=== PATIENT | male | born 2005 | race Caucasian/White ===

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

== ENCOUNTER 2023-06-14 09:21 | Emergency (ER) | payer OTHER, SELFPAY ==
[2023-06-14 09:22] VITALS: BP 130/66; PULSE 77; RESP 14; TEMP 36.4; O2SAT 100; BMI 19.3
--- NOTE | 2023-06-14 09:38 | ED.VIS.LOWEX ---
HPI History of Present Illness Chief Complaint: Lower Extremity Injury Narrative Narrative: 18-year-old male who denies significant past medical history presents with a work-related injury. He states that he was riding on the outside of a bobcat, and his foot was hanging off of it. It got caught and twisted. He now has pain and swelling across the top of his right foot. He denies other injury. Hurts more when he weightbears and walks. He presents with his boss for evaluation of his right foot injury. He denies any ankle pain or any injury above his right foot. PFSH PFSH Medical History no medical history Home Medications NK 05/20/18 [History Last Taken Unknown] Allergy/AdvReac Type Severity Reaction Status Date / Time No Known Allergies Allergy Verified 06/14/23 09:22 Surgical History no surgical history Social History Smoking Status: Never smoker ROS ROS ED ROS Narrative Constitutional: No fever, no chills. HEENT: No sore throat. No neck pain. No loss of vision. No rhinorrhea. Cardiovascular: No chest pain. No palpitations. No pedal edema. Respiratory: No cough, no shortness of breath. Abdominal: No abdominal pain. No nausea. No vomiting. Genitourinary: No dysuria. No hematuria. Musculoskeletal: No myalgias. Pain across top of right foot, swelling noted on dorsum of right foot more laterally. Neurologic: No headaches. No dizziness. No lightheadedness. Skin: No rash. No change in color. Psychiatric: No depression. No anxiety. EXAM Physical Exam Narrative Exam Narrative: Afebrile. Vital signs noted. HEENT: Normocephalic. Atraumatic. PERRL, EOMI. Neck soft and supple. No point tenderness or step off. Cardiovascular: Regular rate and rhythm. No murmurs, rubs, or gallops appreciated. Respiratory: No tachypnea. Lungs clear to auscultation bilaterally. Gastrointestinal: Abdomen soft, nontender, with normoactive bowel sounds. No rebound or guarding. Neurological: Awake. Alert. Nonfocal, nonlateralizing. Skin: No rash. Normal color. No pallor. Musculoskeletal: No pedal edema. Positive swelling over tarsal bones, more laterally with tenderness across dorsum of foot. Palpable dorsalis pedis pulse. No malleoli or pain. No palpable Achilles tendon deficit. Able to dorsiflex and flex foot. Good capillary refill of toes. No proximal fibular head tenderness. Const Vital Signs: 06/14/23 09:22 Temperature 97.6 F L Temperature Source Temporal Pulse Rate 77 Respiratory Rate 14 Blood Pressure 130/66 H Blood Pressure Mean 87 Pulse Ox 100 Oxygen Delivery Method Room Air MDM MDM MDM Narrative Medical decision making narrative: In the differential is foot sprain versus foot fracture. Ice pack was applied. As this is a work-related injury, patient requires testing by [facility]. X-rays were obtained of the right foot in 3 views and interpreted by myself independently. On my interpretation of his foot x-ray in 3 views, there is no evidence of an acute fracture. I reviewed the radiology report which confirms my independent interpretation. Patient will be placed in an Dominic wrap and be weightbearing as tolerated. He was given a few restrictions for work including limited use of his right leg, and limited climbing stairs or ladders. He is to continue ice and elevation of his right lower extremity when possible. I discussed patient with Dr. Krueger with podiatry who agrees that he can follow-up with Workmen's Comp. patient's. Additionally, he will be referred to report immediately to the [facility] for his drug testing. I feel he can be discharged safely home with follow-up. Return instructions to the emergency department were reviewed. Disposition is discharged home in stable condition. Radiography Diagnostic Testing: Clinical Impression(s) from Imaging Studies Foot X-Ray 06/14/23 09:55 IMPRESSION: No acute abnormality is seen. Electronically Signed: Bg Ziegler MD at 10:17 EDT , Discharge Plan Triage Chief Complaint: Lower Extremity Injury ED Provider: Doc Estrada Dx/Rx/DC Orders Clinical Impression: Localized swelling of right foot, Right foot sprain Instructions: ED Foot Sprain Prescriptions: No Action NK Primary Care Provider: Myles Rocha Referrals: Gilson Krueger DPM [Med Staff - Active Staff] - As soon as possible Myles Rocha MD [Primary Care Provider] - Activity Restrictions/Additional Instructions: Report to the [facility] immediately for your required testing/drug screening. You may also follow-up with [facility] or Dr. Krueger with podiatry regarding your Workmen's Comp. injury. Disposition Disposition: Home, Self Care
--- NOTE | 2023-06-14 09:55 | RAD_ITS ---
STUDY: X-RAY - RIGHT FOOT CLINICAL: Male, 18 years old. Injury to the right foot. TECHNIQUE: 3 view(s) of the foot. COMPARISON: None. FINDINGS: Normal talus, calcaneus, and tarsal bones. Normal visualized subtalar, talonavicular, calcaneocuboid, tarsal and tarsometatarsal articulations. Small spur seen along the anterior tarsonavicular bone. Normal metatarsi. Normal metatarsophalangeal joint of the great toe. Normal tibial and fibular sesamoid bones. Normal interphalangeal joint of the great toe. Normal phalanges of the great toe. Normal second through fifth metatarsophalangeal joints. Normal interphalangeal joints and phalanges of the lesser toes. The soft tissue structures are unremarkable. RAD/Foot min 3 Views IMPRESSION: No acute abnormality is seen. Electronically Signed: Bg Ziegler MD at 10:17 EDT ,
--- NOTE | 2023-06-14 10:56 | ED.RN ---
Dominic wrap applied
== END 2023-06-14 10:45 | disposition home or self-care (01) ==
LOC: ED 11:17
PROVIDERS: Emergency Provider Emergency Medicine; PCP Pediatrics; Visit Provider Emergency Medicine
DX: S93.601A Unspecified sprain of right foot, initial encounter (principal); M79.89 Other specified soft tissue disorders; W31.82XA Contact with other commercial machinery, initial encounter; Y99.0 Civilian activity done for income or pay
CPT/HCPCS: 73630; 99282

== ENCOUNTER → 2023-10-26 | Outpatient (CLI) | payer OTHER, SELFPAY ==
[2023-10-26 17:39] LABS: Hematocrit 44.4 % (40-54); Hemoglobin 14.9 g/dL (13.0-16.5); Mean Corp Hgb Conc 33.6 g/dL (32-36); Mean Corpuscular Hgb 28.7 pg (27.0-32.0); Mean Corpuscular Volume 85.4 fL (80-94); Mean Platelet Vol. 10.1 fl (6.2-12.0); Platelet Count 270 K/mm3 (150-450); RBC Distribution Width CV 12.7 % (11.6-14.6); RBC Distribution Width SD 38.9 fl (35.1-43.9); White Blood Count 9.9 K/mm3 (4.4-11.0)
[2023-10-26 17:54] LABS: Erythrocyte Sedimentation Rate 5 mm/hr (0-20)
[2023-10-26 18:21] LABS: ALB/GLOB Ratio 1.2 RATIO (0.9-2.4); AST(SGOT) 16 U/L (15-37); Alanine Aminotransfer ALT/SGPT 29 U/L (16-61); Albumin, Serum 4.2 g/dL (3.2-5.0); Alkaline Phosphatase 56 U/L (45-117); Anion Gap 4 (5-15); BUN 18 mg/dL (7-18); BUN/Creat Ratio 14.6 RATIO (10-20); CRP < 2.90 mg/L (0.0-3.0); Calcium,Total 9.4 mg/dL (8.5-10.1); Chloride 105 mmol/L (98-107); Creatinine, Serum 1.23 mg/dL (0.70-1.30); EST Glomerular Filtration Rate 79 mL/min (>60); Est Glom Filt Rate - Afr Amer 96 mL/min (>60); Globulin 3.6 g/dL (2.2-4.2); Glucose 66 mg/dL (74-106); Potassium 3.9 mmol/L (3.5-5.1); Protein, Total 7.8 g/dL (6.4-8.2); Sodium Level 137 mmol/L (136-145); T4 Total, Thyroxin 11.5 ug/dL (4.5-12.1)
--- OUTSIDE RECORDS SUMMARY | 2023-10-26 18:52 | XMS RPT_ITS | CCD ---
Author Name Unknown Address [address] [place] [address] Organization [facility] Care Team Providers Care Brick Burner Head Name Role Phone DIGNA BECERRA Primary Care Unavailable PROVIDER, UNKNOWN Referring Unavailable DIGNA BECERRA Primary Care Unavailable LISA DOWELL Attending Unavailable Digna Becerra MD Primary Care Provider [phone] DIGNA BECERRA Primary Care Unavailable LISA DOWELL Referring Unavailable DIGNA BECERRA Primary Care Unavailable LISA DOWELL Referring Unavailable DIGNA BECERRA Primary Care Unavailable NAA IBARRA Referring Unavailable NAA IBARRA Attending Unavailable DIGNA BECERRA Primary Care Unavailable NAA IBARRA Attending Unavailable Medications Completed/Discontinued Medications Medication Drug Class(es) Dates Sig (Normalized) Sig (Original) adapalene 0.003 mg/mg / benzoyl peroxide 0.025 mg/mg topical gel (2 sources) Retinoid Start: 10-26-2019 adapalene-benzoyl peroxide (EPIDUO FORTE) 0.3-2.5 % glwp Apply to the face qhs 45 g 3 10/26/2019 Active Problems Problem Classification Problem Date Documented Da te Episodic/Chronic Other bone disease and musculoskeletal deformities (1 source) Adolescent idiopathic scoliosis, site unspecified; Translations: [Adolescent idiopathic scoliosis, unspecified spinal region] Onset: 11-01-2020 Chronic Other bone disease and musculoskeletal deformities (2 sources) Adolescent idiopathic scoliosis; Translations: [Adolescent idiopathic scoliosis, site unspecified] Onset: 11-01-2020 11-01-2020 Chronic Other bone disease and musculoskeletal deformities (1 source) Adolescent idiopathic scoliosis, thoracic region; Translations: [Adolescent idiopathic scoliosis of thoracic region] Onset: 11-01-2020 Chronic Other nervous system disorders (2 sources) Syringomyelia and syringobulbia; Translations: [Syringomyelia and syringobulbia (HCC)] Onset: 09-24-2023 Chronic Other nervous system disorders (2 sources) Syringomyelia and syringobulbia; Translations: [Syringomyelia and syringobulbia] 10-22-2023 Chronic Residual codes; unclassified (1 source) Pain, unspecified; Translations: [Pain] Onset: 07-19-2023 Episodic Results Test Name Value Interpretation Reference Range Facil ity Encounters Encounter Date Encounter Type Care Provider Facility Start: 10-22-2023 End: 10-22-2023 ambulatory [facility] Facility:[facility] Start: 10-22-2023 End: 10-22-2023 Subsequent hospital visit by physician Mri Radio [facility] (I-Stat/1.5t) Work Phone: Radiology Procedures Date Procedure Procedure Detail Performing Clinician Start: 10-22-2023 Mri spinal canal tho racmorgan w/o & w/contr matrl Lisa Dowell PA-C Work Phone: Plan of Treatment Date Care Activity Detail Author Start: 11-17-2024 Urine microalbumin profile DTa P,Tdap,Td Vaccine (7 - Td or Tdap) [facility] Start: 09-20-2023 Depression Assessment Depression Ass essment [facility] Start: 05-21-2023 Covid-19 Vaccine ( season) Covid-19 Vaccine ( season) [facility] Start: 05-21-2023 Influenza vaccination Influenza Vacc ine (#1) [facility] Start: 2021 Hepatitis C screening Hepatitis C [place] new [facility] Start: 2021 HIV screening HIV Screening [facility] Start: 2019 Meningococcal B Vacc ine: Consider Based On Risk (1 of 2 - Patient Seeks Protection) Meningococcal B Vaccine: Consider Based On Risk (1 of 2 - Patient Seeks Protection) [facility] Start: 2017 Peds To Adult Transi tion Annual Assessment Peds To Adult Transition Annual Assessment [facility] Immunizations Immunization Date Immunization Notes Care Provider Fa cility 10-30-2021 influenza, injectabl e, quadrivalent, contains preservative Mri (I-Stat/1.5t) Work Phone: [facility] 10-30-2021 influenza virus vacc ine, unspecified formulation Mri (I-Stat/1.5t) Work Phone: [facility] 04-11-2021 COVID-19 original vaccine, full dose, monovalent (MODERNA) Mri (I-Stat/1.5t) Work Phone: [facility] 10-26-2019 meningococcal polysaccharide (groups A, C, Y and W-135) diphtheria toxoid conjugate vaccine (MCV4P) Mri (I-Stat/1.5t) Work Phone: [facility] 10-25-2018 influenza, injectabl e, quadrivalent, contains preservative Mri (I-Stat/1.5t) Work Phone: [facility] 07-20-2017 Human Papillomavirus 9-valent vaccine Mri (I-Stat/1.5t) Work Phone: [facility] 07-20-2017 influenza, injectabl e, quadrivalent, contains preservative Mri (I-Stat/1.5t) Work Phone: [facility] 04-28-2016 Human Papillomavirus 9-valent vaccine Mri (I-Stat/1.5t) Work Phone: [facility] 11-17-2014 meningococcal polysaccharide (groups A, C, Y and W-135) diphtheria toxoid conjugate vaccine (MCV4P) Mri (I-Stat/1.5t) Work Phone: [facility] 11-17-2014 tetanus toxoid, redu jailyn diphtheria toxoid, and acellular pertussis vaccine, adsorbed Mri (I-Stat/1.5t) Work Phone: [facility] 10-07-2013 influenza virus vacc ine, unspecified formulation Mri (I-Stat/1.5t) Work Phone: [facility] 09-22-2012 influenza virus vacc ine, live, attenuated, for intranasal use Mri (I-Stat/1.5t) Work Phone: [facility] 07-11-2011 influenza virus vacc ine, live, attenuated, for intranasal use Mri (I-Stat/1.5t) Work Phone: [facility] Work Phone: 06-07-2010 influenza virus vacc ine, live, attenuated, for intranasal use Mri (I-Stat/1.5t) Work Phone: [facility] Work Phone: 07-05-2009 influenza virus vacc ine, live, attenuated, for intranasal use Mri (I-Stat/1.5t) Work Phone: [facility] Work Phone: 07-05-2008 influenza virus vacc ine, live, attenuated, for intranasal use Mri (I-Stat/1.5t) Work Phone: [facility] Work Phone: 03-09-2008 diphtheria, tetanus toxoids and acellular pertussis vaccine Mri (I-Stat/1.5t) Work Phone: [facility] 03-09-2008 measles, mumps and rubella virus vaccine Mri (I-Stat/1.5t) Work Phone: [facility] 03-09-2008 poliovirus vaccine, inactivated Mri (I-Stat/1.5t) Work Phone: [facility] 03-09-2008 varicella virus vaccine Mri (I-Stat/1.5t) Work Phone: [facility] 07-24-2006 influenza virus vacc ine, unspecified formulation Mri (I-Stat/1.5t) Work Phone: [facility] 07-21-2005 influenza virus vacc ine, unspecified formulation Mri (I-Stat/1.5t) Work Phone: [facility] Work Phone: 09-10-2004 measles, mumps and rubella virus vaccine Mri (I-Stat/1.5t) Work Phone: [facility] Work Phone: 07-04-2004 influenza virus vacc ine, unspecified formulation Mri (I-Stat/1.5t) Work Phone: [facility] Work Phone: 06-12-2004 diphtheria, tetanus toxoids and acellular pertussis vaccine Mri (I-Stat/1.5t) Work Phone: [facility] Work Phone: 06-12-2004 haemophilus influenz ae type b vaccine, HbOC conjugate Mri (I-Stat/1.5t) Work Phone: [facility] Work Phone: 06-12-2004 pneumococcal conjuga te vaccine, 7 valent Mri (I-Stat/1.5t) Work Phone: [facility] Work Phone: 03-12-2004 varicella virus vaccine Mri (I-Stat/1.5t) Work Phone: [facility] Work Phone: 2003 hepatitis B vaccine, pediatric or pediatric/adolescent dosage Mri (I-Stat/1.5t) Work Phone: [facility] Work Phone: 2003 poliovirus vaccine, inactivated Mri (I-Stat/1.5t) Work Phone: [facility] Work Phone: 2003 diphtheria, tetanus toxoids and acellular pertussis vaccine Mri (I-Stat/1.5t) Work Phone: [facility] Work Phone: 2003 haemophilus influenz ae type b vaccine, HbOC conjugate Mri (I-Stat/1.5t) Work Phone: [facility] Work Phone: 2003 hepatitis B vaccine, pediatric or pediatric/adolescent dosage Mri (I-Stat/1.5t) Work Phone: [facility] Work Phone: 2003 pneumococcal conjuga te vaccine, 7 valent Mri (I-Stat/1.5t) Work Phone: [facility] Work Phone: 2003 influenza virus vacc ine, unspecified formulation Mri (I-Stat/1.5t) Work Phone: [facility] Work Phone: 2003 diphtheria, tetanus toxoids and acellular pertussis vaccine Mri (I-Stat/1.5t) Work Phone: [facility] Work Phone: 2003 haemophilus influenz ae type b vaccine, HbOC conjugate Mri (I-Stat/1.5t) Work Phone: [facility] Work Phone: 2003 pneumococcal conjuga te vaccine, 7 valent Mri (I-Stat/1.5t) Work Phone: [facility] Work Phone: 2003 poliovirus vaccine, inactivated Mri (I-Stat/1.5t) Work Phone: [facility] Work Phone: 2003 diphtheria, tetanus toxoids and acellular pertussis vaccine Mri (I-Stat/1.5t) Work Phone: [facility] Work Phone: 2003 haemophilus influenz ae type b vaccine, HbOC conjugate Mri (I-Stat/1.5t) Work Phone: [facility] Work Phone: 2003 pneumococcal conjuga te vaccine, 7 valent Mri (I-Stat/1.5t) Work Phone: [facility] Work Phone: 2003 poliovirus vaccine, inactivated Mri (I-Stat/1.5t) Work Phone: [facility] Work Phone: 2003 hepatitis B vaccine, pediatric or pediatric/adolescent dosage Mri (I-Stat/1.5t) Work Phone: [facility] Work Phone: Payers Date Payer Category Payer Private Health Insurance [facility] [id number] 2018 Private Health Insurance [employer] PPO TPA [id number] 2018-Present [address] [place] [phone] PPO [id number] Social History Date Type Detail Facility [facility]: [facility] History of tobacco use Passive smoker [facility] Start: 07-19-2023 Tobacco use and exposure Smoke less tobacco non-user [facility] Start: 09-24-2023 Alcohol intake Not Asked [facility] Start: 07-19-2023 End: 09-24-2023 History of Social function [facility] Start: 07-19-2023 End: 09-24-2023 Tobacco use panel [facility] Adult Depression Screening Assessment 6 [facility] Start: 07-19-2023 Tobacco Comment dad outside [facility] Start: 2003 Sex Assigned At Male [facility] Start: 05-10-2021 Gender identity Identifies as male gender (finding) [facility] Clinical Notes 07-19-2023 to 10-22-2023 Janine Melendez RT(R) - 10/22/2023 1:00 PM EST Note Date & Type Note Facility 10-22-2023 Note HNO ID: [id number] Author: JANINE MELENDEZ RT(R) Service: ? Author Type: Technologist Type: Progress Notes Filed: 10/22/2023 13:14 Note Text: Radiology Service Progress Note DATE OF SERVICE: October 22, 2023 TIME: 1:13 PM PATIENT IDENTITY VERIFICATION COMPLETED USING TWO (2) STANDARD IDENTIFIERS: Name and Date of confirmed by patient verbally. FALL SCREENING: Has the patient had 2 falls in the last year or 1 fall with injury or currently using an Ambulatory Assistive Device (Walker, Cane, Wheelchair, Crutches, etc.)? No PATIENT GENDER DATA: Male PATIENT RELEVANT IMPLANT DATA REVIEWED: Yes PATIENT PRESENTS WITH AN IMPLANTABLE OR ATTACHED COKEMAN: No ALLERGIES: Reviewed and unchanged CONTRAST ALLERGY: NO. EXAM: MRI - CONTRAST TYPE: GROUP II PERIPHERAL IV DATA: Ambulatory: A peripheral IV was started in the Left antecubital site with a Angio cath: 22 gauge. RADIOLOGY DEPARTMENT: MR; Exam(s) Completed: Head: Routine Brain Spine: Cervical spine, Thoracic spine, and Lumbar spine SIGNATURE: RT Luzmaria(R) PATIENT NAME: Hector Iverson DATE: October 22, 2023 TIME: 1:13 PM [facility] 10-22-2023 History of Present illness Narrative Radiology Service Progress Note DATE OF SERVICE: October 22, 2023 TIME: 1:13 PM PATIENT IDENTITY VERIFICATION COMPLETED USING TWO (2) STANDARD IDENTIFIERS: Name and Date of confirmed by patient verbally. FALL SCREENING: Has the patient had 2 falls in the last year or 1 fall with injury or currently using an Ambulatory Assistive Device (Walker, Cane, Wheelchair, Crutches, etc.)? No PATIENT GENDER DATA: Male PATIENT RELEVANT IMPLANT DATA REVIEWED: Yes PATIENT PRESENTS WITH AN IMPLANTABLE OR ATTACHED COKEMAN: No ALLERGIES: Reviewed and unchanged CONTRAST ALLERGY: NO. EXAM: MRI - CONTRAST TYPE: GROUP II PERIPHERAL IV DATA: Ambulatory: A peripheral IV was started in the Left antecubital site with a Angio cath: 22 gauge. RADIOLOGY DEPARTMENT: MR; Exam(s) Completed: Head: Routine Brain Spine: Cervical spine, Thoracic spine, and Lumbar spine SIGNATURE: RT Luzmaria(R) PATIENT NAME: Hector Iverson DATE: October 22, 2023 TIME: 1:13 PM documented in this encounter [facility] 09-24-2023 Note HNO ID: [id number] Author: LISA DOWELL PA-C Service: ? Author Type: Physician Supercalender Operator Type: Progress Notes Filed: 09/24/2023 14:56 Note Text: OUTPATIENT ADULT NEUROSURGICAL CONSULTATION Dear Dr Digna Becerra MD: Thank you for your kind referral of Hector Iverson for consultation. Hector Iverson was evaluated in the adult neurosurgery clinic on 09/24/2023 for the problem of syrinx. Although his history is well known to you, please allow me to reiterate it for the purpose of my medical record. Hector Iverson is accompanied to today's clinic visit by his mother. Informant: History obtained from patient and mother. Chief Complaint: syrinx History of Present Illness: Hector Iverson is a 18 year old male with a hx of scoliosis who presents today for a new patient evaluation of syrinx. Around 14 years old they noticed a shoulder tilt and around this same time started to notice b/l hand tremors and some sore neck and mid thoracic pain. Tremors are mostly constant. Neck and back pain seem to come and go, triggered by sitting too long and standing too long, improved with lifting weights. They met with ortho whom recommended to monitor, it was initially stable but they saw progression on the recent scoli film, which prompted the mri. His other symptoms have been stable. He has started to notice over the past 1.5 years he has had issues with swallowing certain foods, bread, tuna, and meats. He has also been having issues with epigastric and LUQ stabbing pains. Seems to be primarily after he eats and at bedtime. He will be seeing GI soon at [facility], they also think he will be getting a swallow study. He acknowledges intermittent dizziness with positonal changes., no syncope. He deny any headaches, dizziness, visual difficulties, other UE or LE pain/paresthesias/weakness, bowel/bladder dysfunction, loss of pain/temperature sensation, or gait imbalance. Had a head injury at age 1 and broke his nose at age 10. Has never had an image of his brain before. PAST HISTORY: and Developmental History: Hector Iverson was born at term gestation. The course was uneventful. movement was normal. The ultrasounds were normal. scores are unknown, however, there were no complications.. Early developmental milestones were normal. Past Medical and Surgical History: Past medical history is unremarkable. There is no history of significant head trauma, central nervous system infection, or febrile seizures. PAST MEDICAL HISTORY Diagnosis Date Fractured nose 04/2018 hyperbilirubin PMH - PAST MEDICAL HISTORY OF 08/25-08/22 pneumonia-bronchiolitis PMH - PAST MEDICAL HISTORY OF 02/2008 normal color vision Routine or ritual circumcision PAST SURGICAL HISTORY Procedure Laterality Date CIRCUMCISION W/CLAMP/OTH DEV W/BLOCK Family History: FAMILY HISTORY Problem Relation Age of Onset other (heart murmur) Mother Hearing Loss Father Heart Father age 46 years Cancer Maternal Grandfather other ([place]) Paternal Uncle age 49 years - other (blood clot in leg) Paternal Grandfather Maternal aunt and uncle-scoliosis No SITE IDENTIFICATION SPECIALIST tumors Social History: Social History Tobacco Use Smoking status: Never Passive exposure: Yes Smokeless tobacco: Never Tobacco comments: dad outside Vaping Use Vaping Use: Never used Current Outpatient Medications Medication Sig iv contrast (will be provided with radiology test) MRI Brain Inject, intravenously, once for 1 dose.No IV access, insert saline lock prior to beginning of sedation, infusion, injection of imaging exam.Discontinue saline lock post exam. If Pt. has a central line or IVAD, may access for administration according to line specific nursing protocol.Once exam is complete flush line and de-access according to line specific nursing protocol in the MR contrast administration guidelines link iv contrast (will be provided with radiology test) MRI C,T,L SPINE Inject, intravenously, once for 1 dose. No IV access, insert saline lock prior to the beginning of sedation, infusion, injection of imaging exam. Discontinue saline lock post exam. If Pt. has a central line or IVAD, may access for administration according to line specific nursing protocol. Once exam is complete flush line and de-access according to line specific nursing protocol in the MR contrast administration guidelines link. famotidine (PEPCID) 20 mg tablet 1 tablet by mouth first thing in the morning on an empty stomach. (Patient not taking: Reported on 10/30/2021 ) adapalene-benzoyl peroxide (EPIDUO FORTE) 0.3-2.5 % glwp Apply to the face qhs (Patient not taking: Reported on 05/29/2021 ) No current facility-administered medications for this visit. . Allergies: ALLERGIES No Known Allergies Review of Systems: General: No significant weight loss. Head: see HPI Eyes: No vision problems identified. Ears: No (more content not included)... [facility] 09-09-2023 Note HNO ID: [id number] Author: Janine Melendez RT(R) Service: ? Author Type: Technologist Type: Progress Notes Filed: 09/09/2023 1:46 PM Note Text: Radiology Service Progress Note PATIENT NAME: Hector Iverson DATE OF SERVICE: September 09, 2023 TIME: 1:46 PM PATIENT IDENTITY VERIFICATION COMPLETED USING TWO (2) IDENTIFIERS: Name and Date of confirmed by patient verbally. FALL SCREENING: Has the patient had 2 falls in the last year or 1 fall with injury or currently using an Ambulatory Assistive Device (Walker, Cane, Wheelchair, Crutches, etc.)? No PATIENT GENDER DATA: Male PATIENT RELEVANT IMPLANT DATA REVIEWED: Yes RADIOLOGY DEPARTMENT: MR; Exam(s) Completed: Spine: Cervical spine, Thoracic spine, and Lumbar spine PERIPHERAL IV DATA: Not applicable SIGNED BY: RT Luzmaria(R) September 09, 2023 1:46 PM [facility] 07-19-2023 Note HNO ID: [id number] Author: Naa Ibarra PA-C Service: ? Author Type: Physician Supercalender Operator Type: Progress Notes Filed: 07/19/2023 4:24 PM Note Text: Naa Ibarra PA-C [facility] [place] [address] , July 19, 2023 Accompanied by: Mom Subjective: Hector Iverson is here for follow-up of his scoliosis. Patient states that he has had progressive back pain. He has been working out a fair amount which he feels has kept his cosmetic appearance with minimal change. He has thoracic back pain that radiates to his epigastric region when he is supine. If he places a foam roll under his lumbar region, the pain subsides. Patient also describes some dysphagia. Never been evaluated by gasto. Rates his back pain as 3-8/10 depending on activities. May consider surgery bc pain is getting worse. Objective: Spine Gait: Normal walking mechanics with a non-antalgic gait Gross asymmetry noted Shoulders: Left elevated Iliac Crest: Level Forward Bend: No pain noted, left thoracic rib hump, reaches to mid-shins Palpation: Spinous processes: no pain with palpation Paraspinal muscles: left thoracic paraspinal tenderness SI joints: non tender Straight leg raise: Seated: negative Supine: negative Strength: Hip flexion: +5/5 Hip abduction: +5/5 Knee extension: +5/5 Ankle plantarflexion: +5/5 Ankle dorsiflexion: +5/5 Imaging: Xrays taken of the spine today show slight increase in upper thoracic levoscoliosis of approximately 45 degrees Impression: Adolescent thoracic levoscoliosis, mild progression Plan: Consult to gastro for epigastric pain and dysphasia Consult to PT Follow up with Dr. Brown for possible surgical discussion Naa Ibarra PA-C [facility] 07-19-2023 Note HNO ID: [id number] Author: Shonna Rosales CT Service: Radiology Author Type: Technologist Type: Progress Notes Filed: 07/19/2023 1:09 PM Note Text: Radiology Service Progress Note PATIENT NAME: Hector Iverson DATE OF SERVICE: July 19, 2023 TIME: 1:08 PM PATIENT IDENTITY VERIFICATION COMPLETED USING TWO (2) IDENTIFIERS: Name and Date of confirmed by patient verbally. FALL SCREENING: Has the patient had 2 falls in the last year or 1 fall with injury or currently using an Ambulatory Assistive Device (Walker, Cane, Wheelchair, Crutches, etc.)? No PATIENT GENDER DATA: Male PATIENT RELEVANT IMPLANT DATA REVIEWED: Not Applicable RADIOLOGY DEPARTMENT: General X-ray: Exam(s) Completed: Spine X-Ray(s): Scoliosis Series PERIPHERAL IV DATA: Not applicable SIGNED BY: LISA Wild July 19, 2023 1:08 PM [facility] Diagnosis Syringomyelia and syringobulbia (HCC) Syringomyelia and syringobulbia [facility] Diagnostic Procedure Only (Routine) - Closed Specialty Diagnoses / Procedures Referred By Sukumar t Referred To Contact MR IMAGING Diagnoses Syringomyelia and syringobulbia (HCC) Procedures MRI LUMBAR SPINE WO/W IVCON MRI SPINAL CANAL LUMBAR W/O & W/CONTR YASHL Lisa Dowell PA-C [address] [place] [address] Mr Imaging [facility] Referral ID Status Reason Start Date Expiration Date V isits Requested Visits Authorized [id number] Closed Auto-Generate d Referral 10/22/2023 09/19/2024 1 1 * Diagnostic Procedure Only (Routine) - Closed Specialty Diagnoses / Procedures Referred By Contac t Referred To Contact MR IMAGING Diagnoses Syringomyelia and syringobulbia (HCC) Procedures MRI THORACIC SPINE WO/W IVCON MRI SPINAL CANAL THORACIC W/O & W/CONTR Lisa Nj PA-C [address] [place] [phone] Mr Imaging [place] [address] Referral ID Status Reason Start Date Expiration Date V isits Requested Visits Authorized [id number] Closed Auto-Generate d Referral 10/22/2023 09/19/2024 1 1 [facility] for referral (narrative)* Diagnostic Procedure Only (Routine) - Closed Specialty Diagnoses / Procedures Referred By Contac t Referred To Contact MR IMAGING Diagnoses Syringomyelia and syringobulbia (HCC) Procedures MRI CERVICAL SPINE WO/W IVCON MRI SPINAL CANAL CERVICAL W/O & W/CONTR Lisa Nj PA-C [address] [place] [phone] [facility] [place] [address] Referral ID Status Reason Start Date Expiration Date V isits Requested Visits Authorized [id number] Closed Auto-Generate d Referral 10/22/2023 09/19/2024 1 1 * Diagnostic Procedure Only (Routine) - Closed Specialty Diagnoses / Procedures Referred By Contac t Referred To Contact MR IMAGING Diagnoses Syringomyelia and syringobulbia (HCC) Procedures MRI BRAIN WO/W IVCON MRI BRAIN BRAIN STEM W/O W/CONTRAST MATERIAL Lisa Dowell PA-C [address] [place] [address] Mr Imaging [facility] Referral ID Status Reason Start Date Expiration Date V isits Requested Visits Authorized [id number] Closed Auto-Generate d Referral 10/22/2023 09/19/2024 1 1 [facility] for visit Narrative* Diagnostic Procedure Only (Routine) - Closed Specialty Diagnoses / Procedures Referred By Contac t Referred To Contact MR IMAGING Diagnoses Syringomyelia and syringobulbia (HCC) Procedures MRI THORACIC SPINE WO/W IVCON MRI SPINAL CANAL THORACIC W/O & W/CONTR Lisa Nj PA-C [address] [place] [phone] Mr Imaging [place] [address] Referral ID Status Reason Start Date Expiration Date V isits Requested Visits Authorized [id number] Closed Auto-Generate d Referral 10/22/2023 09/19/2024 1 1 [facility] for visit Narrative* Diagnostic Procedure Only (Routine) - Closed Specialty Diagnoses / Procedures Referred By Contac t Referred To Contact MR IMAGING Diagnoses Syringomyelia and syringobulbia (HCC) Procedures MRI CERVICAL SPINE WO/W IVCON MRI SPINAL CANAL CERVICAL W/O & W/CONTR Lisa Nj PA-C [address] [place] [address] Mr Imaging [facility] [id number] Referral ID Status Reason Start Date Expiration Date V isits Requested Visits Authorized [id number] Closed Auto-Generate d Referral 10/22/2023 09/19/2024 1 1 [facility] Summary Purpose Family History No Family History Records FoundNo Family History Records FoundNo Family History Records Found Advance Directives No Advanced Directives Records FoundNo Advanced Directives Records FoundNo Advanced Directives Records Found Additional Source Comments (unrecognized sect ion and content) No Status Records FoundNo Status Records FoundNo Status Records Found INFORMATION SOURCE (unrecogn ized section and content) DATE CREATED AUTHOR AUTHOR'S ORGANIZ ATION 09/25/2023 [facility] DATE CREATED AUTHOR AUTHOR'S ORGANIZ ATION 10/24/2023 [facility] Source Comments (unrecognize d section and content) In the event this informatio n is protected by the Federal Confidentiality of Alcohol and Drug Abuse Patient Records regulations: The Federal rules restrict any use of the information to criminally investigate or prosecute any alcohol or drug abuse patient.[facility] the event this information is protected by the Federal Confidentiality of Alcohol and Drug Abuse Patient Records regulations: The Federal rules restrict any use of the information to criminally investigate or prosecute any alcohol or drug abuse patient.[facility] Care Teams (unrecognized sec tion and content) Brick Burner Head Relationship Specialty Start Date End Date Digna Becerra MD [address] [place] [address] PCP - General 03 FOR RECORDS PERTAINING TO PATIENTS WHO ARE OR HAVE BEEN ENROLLED IN A CHEMICAL DEPENDENCY/SUBSTANCEABUSE PROGRAM, SOME INFORMATION MAY BE OMITTED. This clinical summary was aggregated from multiple sources. Caution should be exercised in using it in the provision of clinical care. This summary normalizes information from multiple sources, and as a consequence, information in this document may materially change the coding, format and clinical context of patient data. In addition, data may be omitted in some cases. CLINICAL DECISIONS SHOULD BE BASED ON THE PRIMARY CLINICAL RECORDS. [employer] [facility]. provides no warranty or guarantee of the accuracy or completeness of information in this document.
[2023-10-28 15:08] LABS: Endomysial Antibody IgA Negative (Negative); Immunoglobulin A 123 mg/dL (90-386); t-Transglutaminase IgA <2 U/mL (0-3)
== END | disposition home or self-care (01) ==
LOC: MTLAB 15:14
PROVIDERS: PCP Pediatrics; Referring Provider Internal Medicine Gastroenterology; Visit Provider Internal Medicine Gastroenterology
DX: R63.4 Abnormal weight loss (principal)
CPT/HCPCS: 36415; 80053; 82784; 83516; 84436; 84443; 85027; 85652; 86140; 86255

== ENCOUNTER → 2023-12-13 | Outpatient (CLI) | payer OTHER, SELFPAY ==
--- NOTE | 2023-12-13 08:30 | RAD_ITS ---
STUDY: X-RAY - ESOPHAGUS (BARIUM SWALLOW) WITH FLUOROSCOPY REASON FOR EXAM: Male, 18 years old. DYSPHAGIA TECHNIQUE: 13 view(s) of the esophagus were obtained following swallowing of barium. FLUOROSCOPY TIME (if supplied): (29 seconds) minutes/seconds COMPARISON: None. FINDINGS: There is no demonstrated esophageal foreign body. There is no demonstrated stricture or mucosal abnormality. Normal gastroesophageal junction, without a demonstrated hiatal hernia. The patient ingested a 12 mm tablet of barium without any difficulty. Normal visualized aortic arch and descending thoracic aorta. Normal visualized pulmonary parenchyma. Normal visualized osseous structures of the thorax. RAD/Esophagus Dual Contrast IMPRESSION: Normal plain film x-ray examination (barium swallow) of the esophagus. Electronically Signed: Bg Ziegler MD at 9:55 EDT ,
== END | disposition home or self-care (01) ==
PROVIDERS: PCP Pediatrics; Referring Provider Internal Medicine Gastroenterology; Visit Provider Internal Medicine Gastroenterology
DX: R13.10 Dysphagia, unspecified (principal)
CPT/HCPCS: 74221

== ENCOUNTER → 2024-11-09 | Outpatient (CLI) | payer OTHER, SELFPAY | END | disposition home or self-care (01) | LOC: LAB 16:25 | PROVIDERS: PCP Pediatrics; Referring Provider Nurse Practitioner Acute Care; Visit Provider Nurse Practitioner Acute Care | DX: Z00.00 Encounter for general adult medical examination without abnormal findings (principal) ==

== ENCOUNTER → 2024-11-10 | Outpatient (CLI) | payer OTHER, SELFPAY ==
[2024-11-13 14:09] LABS: H. PYLORI STOOL AG Negative (Negative)
== END | disposition home or self-care (01) ==
LOC: LAB 14:53
PROVIDERS: PCP Pediatrics; Referring Provider Nurse Practitioner Acute Care; Visit Provider Nurse Practitioner Acute Care
DX: R10.13 Epigastric pain (principal)
CPT/HCPCS: 87338

== ENCOUNTER → 2024-11-15 | Outpatient (CLI) | payer OTHER, SELFPAY ==
--- NOTE | 2024-11-15 07:15 | US_ITS ---
PROCEDURE: ABDOMEN LIMITED REASON FOR EXAM: Epigastric pain. COMPARISON: None. FINDINGS: Liver: Grossly normal size and echotexture. Gallbladder: No stones, sludge, wall thickening or tenderness. Common bile duct: Normal measuring 2.5 mm. Pancreas: Visualized portions are sonographically unremarkable. Kidneys: The right kidney measures 10.3 cm in length. Renal parenchymal thicknesses and echotextures are preserved. No hydronephrosis. Aorta: Visualized abdominal aorta is of normal size. IVC: Visualized inferior vena cava is unremarkable. Peritoneal Findings: No ascites identified. US/Abdomen Limited IMPRESSION: NORMAL ABDOMINAL ULTRASOUND. Reading Location: [id number]
== END | disposition home or self-care (01) ==
LOC: US 07:15
PROVIDERS: PCP Pediatrics; Referring Provider Nurse Practitioner Acute Care; Visit Provider Nurse Practitioner Acute Care
DX: R10.13 Epigastric pain (principal)
CPT/HCPCS: 76705